=== PATIENT | male | born 1970 | race Two or more races ===

== ENCOUNTER 2018-12-30 01:18 | Emergency (ER) | payer SELFPAY ==
[2018-12-30] MEDS ORDERED: Famotidine 20 MG Tab ONE (01:41)
--- NOTE | 2018-12-30 10:08 | ER ---
CHIEF COMPLAINT: Hives. HISTORY OF PRESENT ILLNESS: The patient awoke this evening with hives over his hands and extending up his arms. He took 50 mg of Benadryl and this helped almost immediately. The patient did not experience any shortness of breath, breathing difficulties. The hives were localized at mostly the upper extremities. The patient denies any other complaints at this time. PAST MEDICAL HISTORY: Significant for type 2 diabetes, diet controlled. CURRENT MEDICATIONS: None. ALLERGIES: Unaware of any. REVIEW OF SYSTEMS: GENERAL: Negative for fevers, chills, headaches, nausea, or dizziness. HEENT: No swallowing difficulties. No vision problems, hearing difficulties. CARDIOVASCULAR: No chest pain, chest pressure, or other anginal equivalents. PULMONARY: No breathing difficulty, shortness of breath. GASTROINTESTINAL: No abdominal pain, nausea, vomiting, or constipation. The patient did have one loose stool about the time he noticed the hives. GENITOURINARY: Unremarkable. NEUROLOGIC: Unremarkable. PHYSICAL EXAMINATION: GENERAL: The patient appears of stated age. He is in no acute distress. He is absolutely at baseline at this point. VITAL SIGNS: Temperature is 96.8; pulse 96, regular; respirations 18, nonlabored; blood pressure 121/84. No pain. O2 saturations 92% on room air. HEAD: Normocephalic. EARS: Tympanic membranes normal color and contour. External ears and canals normal. OROPHARYNX: Moist mucosa. No evidence of erythema or exudate. Uvula is not inflamed. No evidence of any angioedema. NOSE: Normal. NECK: Supple. No palpable neck masses. Thyroid is not palpable. HEART: Regular rate and rhythm. No murmur. LUNGS: Clear. Respirations nonlabored. No wheezes, crackles, or rhonchi. ABDOMEN: Active bowel sounds. Soft. No apparent tenderness. COURSE IN THE EMERGENCY ROOM: The patient took 50 mg of Benadryl prior to coming in and was pretty much near baseline or at baseline when he arrived here. He was given 40 mg of Pepcid. He was observed for some time and had no return of any symptoms. ASSESSMENT: Hives. PLAN: Use famotidine 20 mg twice daily for 7 days and then once daily thereafter. Use Benadryl 25 mg every 6 hours as needed. This is explained to the patient. He verbally understands this and verbally tells me the plan. The patient is heading back to [place] tomorrow. He will follow up at the closest emergency room if he has return of symptoms or follow up with his regular doctor as needed. KAYLA /[id number]
== END 2018-12-30 02:33 | disposition home or self-care (01) ==
LOC: JD.ED 01:18
DX: L50.9 Urticaria, unspecified (principal); E11.9 Type 2 diabetes mellitus without complications
CPT/HCPCS: 99283; A9270